=== PATIENT | female | born 1985 | race Caucasian/White ===

== ENCOUNTER 2023-08-13 09:17 | Outpatient (AMB) | payer OTHER, SELFPAY ==
--- NOTE | 2023-08-13 10:25 | MHC.OFFWIV ---
Intake Vital Signs 08/13/23 10:28 Height 5 ft 4 in Weight 261 lb BMI 44.8 BP 110/80 Blood Pressure Location Lt brachial Position Sitting Pulse 66 Pulse Source Pulse Oximeter Temp 97.5 F Temp Source Temporal Artery Scan Pulse Oximetry (%) 99 Oxygen Delivery Method Room Air Intake Visit Reasons: EP tooth pain/fever [id number] Intake Note: pt is here today for tooth pain fever started 1 week ago Patient Tobacco Use Status: Never used Tobacco Allergies No Known Allergies [No Known Allergies*] Allergy (Verified 08/13/23 10:27) Do you need a note to return to daycare/school/sports/work: No HPI HPI Comments History of Present Illness Details She presents with R sided facial edema She thinks tooth is infected She has cavity known but denies trauma Paun level in R tooth is 9/10 She has taken Tylenol for pain which helps No fever or chills She admits to similar episode in past No difficulty swallowing PFSH Social History Patient Tobacco Use Status: Never used Tobacco Review of Systems Const Denies body aches, Denies chills and Denies fever(s) Eyes Denies blurry vision ENT Denies otalgia, Denies nasal congestion, Denies sore throat, Denies throat swelling and Denies tongue swelling Card Denies chest pain Resp Denies cough GI Reports other (No difficulty swallowing) Musc Reports other (R facial edema) Skin/Breast Denies erythema Aller/Immun Denies throat swelling and Denies tongue swelling Physical Exam Vital Signs: Last Vital Signs Temp 97.5 F 08/13/23 10:28 Pulse 66 08/13/23 10:28 BP 110/80 08/13/23 10:28 Pulse Ox 99 08/13/23 10:28 Oxygen Delivery Method Room Air 08/13/23 10:28 BMI result Body Mass Index 44.8 General: Non-toxic, NAD. Speaking full sentences. Handling secretions Skin: Warm dry throughout. Slight edema R cheek without erythema or rashes. No submandibular or submental edema or induration Eye: EOMI HENT: Airway patent. Uvula midline. No pharyngeal erythema or edema. No MAT LINKER. + poor dentition along lower gums. + dental natalya to R posterior lower gum with gingival edema without papable mass or abscess. No lingual or sublingual edema. Respiratory: No tachypnea Cardiac: RRR. MSK: Full ROM extremities. Neurology: A/O. No aphasia or facial droop. Gait without abnormality Psych: Good mood and affect Assessment & Plan Assessment & Plan (1) Dental caries: Code(s): K02.9 - Dental caries, unspecified Plan: Patient seen and evaluated. No concern dental abscess, ludwigs or pharyngeal abscess HEad elevation penicillin Dental follow up ER prootcol and symptoms discussed Patient gave verbal understanding and had no additional questions or concerns at time of discharge All questions answered Medications: New penicillin V potassium 500 mg PO TID 7 days 21 tabs 0RF K02.9 - Dental caries, unspecified Coding Level of Care Code Est Pt Level 3 (09237) Diagnoses Dental caries K02.9
[2023-08-13 10:28] VITALS: BP 110/80; PULSE 66; TEMP 36.4; O2SAT 99; BMI 44.8
== END 2023-08-13 11:14 | disposition home or self-care (01) ==
PROVIDERS: PCP Internal Medicine; Visit Provider Physician Assistant
DX: K02.9 Dental caries, unspecified (principal)
CPT/HCPCS: 99213

== ENCOUNTER 2024-01-31 19:19 | Emergency (ER) | payer OTHER, SELFPAY ==
[2024-01-31 21:03] VITALS: BP 142/85; PULSE 80; RESP 18; TEMP 37; O2SAT 100; BMI 44.0
--- NOTE | 2024-01-31 22:48 | ED.DENTAL ---
HPI - Dental/Oral General Chief complaint: Dental/Oral Stated complaint: tooth pain Time Seen by Provider: 01/31/24 22:47 Source: patient Mode of arrival: ambulatory Limitations: no limitations History of Present Illness ED Provider: zeus CHRISTIANSEN Narrative: Patient' diffuse dental caries comes here for increased pain in right lower jaw with swelling started earlier today no fever no chills patient has not seen a dentist yet for broken tooth Related Data Home Medications ?Medication ?Instructions ?Recorded ?Confirmed escitalopram oxalate 10 mg tablet 10 mg PO DAILY 04/03/22 Previous Rx's ?Medication ?Instructions ?Recorded meloxicam 15 mg tablet 15 mg PO DAILY 14 days #14 tabs 04/03/22 penicillin V potassium 500 mg 500 mg PO TID 7 days #21 tabs 08/13/23 tablet amoxicillin 875 mg-potassium 1 tab PO BID #20 tabs 01/31/24 clavulanate 125 mg tablet oxycodone 5 mg tablet 5 mg PO Q6H PRN pain #20 tabs 01/31/24 Allergies Allergy/AdvReac Type Severity Reaction Status Date / Time No Known Allergies Allergy Verified 01/31/24 21:07 [No Known Allergies*] Review of Systems Review of Systems: Yes all other systems are reviewed and are negative PMFSH Social History Social History Patient Tobacco Use Status: Never used Tobacco Advance Directives: No Advance Directives Information Provided: No Do you have a plan to hurt others: No Plan Physical Exam Vital Signs: Vital Signs: Last Vital Signs Temp 98.6 F 01/31/24 21:03 Pulse 80 01/31/24 21:03 Resp 18 01/31/24 21:03 BP 142/85 H 01/31/24 21:03 Pulse Ox 100 01/31/24 21:03 O2 Del Method Room Air 01/31/24 21:03 BMI result Body Mass Index 44.0 HEENT: Teeth image: 1. Broken tooth number 29 with surrounding gum swelling Medical Decision Making Medical Decision Making [facility] Narrative: Patient with infected caries tooth number 29 with surrounding swelling likely early abscess will prescribe Augmentin and pain medication advised to follow with dentist Discharge Plan Discharge Clinical Impression: Dental abscess Patient Disposition: Home, Self-Care Instructions: Dental Abscess (ED) Additional Instructions: Take antibiotics and pain medicine as advised Follow up with a dentist for further management Prescriptions: New amoxicillin-pot clavulanate 875-125 mg tablet 1 tab PO BID Qty: 20 0RF oxycodone 5 mg tablet 5 mg PO Q6H PRN (Reason: pain) Qty: 20 0RF Rx Instructions: Partial Fill upon patient request. No Action penicillin V potassium 500 mg tablet 500 mg PO TID 7 Days Qty: 21 0RF escitalopram oxalate 10 mg tablet 10 mg PO DAILY meloxicam 15 mg tablet 15 mg PO DAILY 14 Days Qty: 14 0RF Print Language: Togolese
[2024-01-31 23:09] VITALS: BP 135/83; PULSE 73; RESP 20; TEMP 36.8; O2SAT 100
[2024-01-31] MEDS: Amoxicillin/Potassium Clav 875 MG TABLET PO (23:13)
[2024-01-31] MEDS: oxyCODONE HCl Immed Release 5 MG TABLET 10 MG PO (23:13)
[2024-01-31 23:16] VITALS: BP 135/83; PULSE 73; RESP 20; TEMP 36.8; O2SAT 100
== END 2024-01-31 23:16 | disposition home or self-care (01) ==
PROVIDERS: Emergency Provider Internal Medicine; PCP Internal Medicine
DX: K04.7 Periapical abscess without sinus (principal); R68.84 Jaw pain; Z79.899 Other long term (current) drug therapy
CPT/HCPCS: 99283; 99284